=== PATIENT | male | born 1940 | race Caucasian/White ===

== ENCOUNTER 2020-07-11 17:30 | Inpatient (IN) ==
[2020-07-11] MEDS ORDERED: Ondansetron 4 MG/2 ML VIAL IVP PRN (21:53)
[2020-07-11] MEDS ORDERED: Acetaminophen 325 MG TABLET PO PRN (21:53)
[2020-07-11] MEDS ORDERED: Naloxone 0.4 MG/ML INJ IVP PRN (21:53)
[2020-07-11] MEDS ORDERED: Ringers Solution, Lactated 1,000 ML IVC SCH (22:00)
[2020-07-12 03:03] LABS: Basophils # 0.1 K/mcL (0.0-0.2); Basophils % 0.7 %; Eosinophils # 0.4 K/mcL (0.0-0.6); Eosinophils % 4.6 %; Hematocrit 35.4 % (37.5-50.1); Hemoglobin 11.3 g/dL (12.9-16.9); INR 1.2; Immature Granulocytes % 0.5 % (0-4); Lymphocytes # 1.7 K/mcL (0.6-4.6); Lymphocytes % 20.5 %; Mean Corpuscular HGB Conc 31.9 g/dL (31.6-35.5); Mean Corpuscular Hemoglobin 30.3 pg (28.0-33.3); Mean Corpuscular Volume 94.9 fL (83.0-100.0); Mean Platelet Volume 10.9 fL (9.4-12.4); Monocytes % 11.6 %; Neutrophils # 5.1 K/mcL (1.6-8.9); Platelet Count 165 K/mcL (140-400); Prothrombin Time 13.5 Seconds (9.4-12.1); Red Blood Count 3.73 M/mcL (4.19-5.50); Red Cell Distribution Width 12.2 % (11.5-14.5); Segmented Neutrophils % 62.1 %; White Blood Count 8.3 K/mcL (4.3-11.1)
[2020-07-12 03:18] LABS: BUN/Creatinine Ratio 17 (6-26); Blood Urea Nitrogen 18 mg/dL (8-23); Calcium 8.5 mg/dL (8.6-10.3); Carbon Dioxide 28 mEq/L (23-29); Chloride 106 mEq/L (98-107); Glucose 116 mg/dL (70-105); Osmolality,Calculated 295 (280-300); Potassium 3.2 mEq/L (3.5-5.1); Sodium 141 mEq/L (136-145); eGFR For African Americans > 60 (> 60); eGFR For Non-African Americans > 60 (> 60)
[2020-07-12] MEDS ORDERED: *HR* Propofol 200 MG/20 ML VIAL IVP ONE (07:23)
[2020-07-12] MEDS ORDERED: Ondansetron 4 MG/2 ML VIAL ONE (07:23)
[2020-07-12] MEDS ORDERED: *HR* FentaNYL (PF) 100 MCG/2 ML VIAL ONE (07:23)
[2020-07-12] MEDS ORDERED: *HR* Midazolam HCl 2 MG/2 ML VIAL ONE (07:23)
[2020-07-12] MEDS ORDERED: Lidocaine -MPF 2% 2 ML VIAL ONE (07:23)
[2020-07-12] MEDS ORDERED: Povidone-Iodine 45 ML, Sodium Chloride IRRigation 1,000 ML IR ONE (07:30)
[2020-07-12] MEDS ORDERED: TOTAL JOINT MIXTURE (100ML) INTRAART ONE (07:45)
[2020-07-12] MEDS: Aspirin Enteric Coated 81 MG Tablet PO SCH (07:49)
[2020-07-12] MEDS ORDERED: atenoloL 50 MG TABLET PO SCH (09:00)
[2020-07-12] MEDS ORDERED: Calcium Gluconate 1gm/50mL 1 GM/50 ML BAG IVPB SCH (09:30)
[2020-07-12] MEDS ORDERED: Ondansetron 4 MG/2 ML VIAL IVP ONE (09:33)
[2020-07-12] MEDS ORDERED: Naloxone 0.4 MG/ML INJ IVP PRN (09:33)
[2020-07-12] MEDS ORDERED: *HR* HYDROmorphone PF 0.5 MG/0.5 ML SYRINGE IVP PRN (09:33)
[2020-07-12] MEDS ORDERED: Nitroglycerin 0.4 MG TAB.SUBL SL PRN (09:33)
[2020-07-12] MEDS ORDERED: *HR* FentaNYL (PF) 100 MCG/2 ML VIAL IVP PRN (09:33)
[2020-07-12] MEDS ORDERED: 0.9 % Sodium Chloride 250 ML IVC SCH (09:45)
[2020-07-12] MEDS ORDERED: CeFAZolin Syr 2,000MG/20 ML 2,000 MG/20 ML SYRINGE IVPB ONE (10:00)
[2020-07-12] MEDS ORDERED: *HR* HYDROMORPHONE 2 MG/ML VIAL ONE (10:17)
[2020-07-12] MEDS ORDERED: *HR* PHENYLEPHRINE 1,000 MCG/10 ML SYRINGE IVP ONE (10:27)
[2020-07-12] MEDS: CeFAZolin 2 GM/120 ML BAG IVPB SCH ×2 (17:01→23:34)
[2020-07-13 02:42] LABS: Hemoglobin 10.4 g/dL (12.9-16.9); Mean Corpuscular HGB Conc 32.5 g/dL (31.6-35.5); Mean Corpuscular Hemoglobin 30.6 pg (28.0-33.3); Mean Corpuscular Volume 94.1 fL (83.0-100.0); Mean Platelet Volume 10.9 fL (9.4-12.4); Platelet Count 192 K/mcL (140-400); Red Cell Distribution Width 12.1 % (11.5-14.5); White Blood Count 11.1 K/mcL (4.3-11.1)
[2020-07-13 03:06] LABS: % Iron Saturation 11 % (20-55); BUN/Creatinine Ratio 19 (6-26); Blood Urea Nitrogen 22 mg/dL (8-23); Calcium 8.4 mg/dL (8.6-10.3); Carbon Dioxide 25 mEq/L (23-29); Chloride 105 mEq/L (98-107); Glucose 143 mg/dL (70-105); Iron 22 mcg/dL (65-175); Magnesium 1.9 mg/dL (1.6-2.6); Osmolality,Calculated 290 (280-300); Potassium 3.8 mEq/L (3.5-5.1); Sodium 137 mEq/L (136-145); Transferrin 146 mg/dL (203-362); eGFR For African Americans > 60 (> 60); eGFR For Non-African Americans > 60 (> 60)
[2020-07-13 03:21] LABS: Ferritin 175 ng/mL (20-250)
[2020-07-13 03:30] LABS: Folate > 22.3 ng/mL (3.0-16.0); Vitamin B12 455 pg/mL (250-1100)
[2020-07-13] MEDS ORDERED: NON-FORMULARY MEDICATION 1 EACH EACH (Amlodipine Besylate 10 MG) PO SCH (09:00)
[2020-07-13] MEDS: Cholecalciferol (D-3) 1,000 UNIT (25MCG) TABLET PO SCH (09:18)
[2020-07-13] MEDS: amLODIPine 5 MG TABLET PO SCH (09:18)
[2020-07-13] MEDS: Multivit/Ca/Min/Fe/FA 1 TAB TABLET PO SCH (09:18)
[2020-07-13] MEDS: Aspirin Enteric Coated 81 MG Tablet PO SCH (09:18)
[2020-07-13] MEDS: carvediloL 25 MG TABLET PO SCH ×2 (09:18→15:48)
[2020-07-14 06:52] LABS: Hematocrit 30.4 % (37.5-50.1); Mean Corpuscular HGB Conc 32.9 g/dL (31.6-35.5); Mean Corpuscular Hemoglobin 30.7 pg (28.0-33.3); Mean Corpuscular Volume 93.3 fL (83.0-100.0); Mean Platelet Volume 10.5 fL (9.4-12.4); Platelet Count 178 K/mcL (140-400); Red Blood Count 3.26 M/mcL (4.19-5.50); Red Cell Distribution Width 12.2 % (11.5-14.5); White Blood Count 9.6 K/mcL (4.3-11.1)
[2020-07-14 07:04] LABS: BUN/Creatinine Ratio 24 (6-26); Blood Urea Nitrogen 23 mg/dL (8-23); Calcium 8.3 mg/dL (8.6-10.3); Carbon Dioxide 27 mEq/L (23-29); Chloride 103 mEq/L (98-107); Glucose 114 mg/dL (70-105); Magnesium 1.8 mg/dL (1.6-2.6); Osmolality,Calculated 289 (280-300); Phosphorous 2.7 mg/dL (2.7-4.5); Potassium 3.3 mEq/L (3.5-5.1); Sodium 137 mEq/L (136-145); eGFR For African Americans > 60 (> 60); eGFR For Non-African Americans > 60 (> 60)
[2020-07-14] MEDS: Aspirin Enteric Coated 81 MG Tablet PO SCH (09:36)
[2020-07-14] MEDS: Cholecalciferol (D-3) 1,000 UNIT (25MCG) TABLET PO SCH (09:36)
[2020-07-14] MEDS: Multivit/Ca/Min/Fe/FA 1 TAB TABLET PO SCH (09:36)
[2020-07-14] MEDS: carvediloL 25 MG TABLET PO SCH ×2 (09:37→17:22)
[2020-07-14] MEDS: amLODIPine 5 MG TABLET PO SCH (09:37)
[2020-07-14 15:48] VITALS: BP 121/73
[2020-07-14 17:15] LABS: Adenovirus Not Detected (Not Detect); Bordetella Pertussis Not Detected (Not Detect); Chlamydophila pneumoniae Not Detected (Not Detect); Coronavirus 229E Not Detected (Not Detect); Coronavirus HKU1 Not Detected (Not Detect); Coronavirus NL63 Not Detected (Not Detect); Coronavirus OC43 Not Detected (Not Detect); Human Metapneumovirus Not Detected (Not Detect); Human Rhinovirus/Enterovirus Not Detected (Not Detect); Influenza A Subtype 2009 H1 Not Detected (Not Detect); Influenza B Not Detected (Not Detect); Mycoplasma pneumoniae Not Detected (Not Detect); Parainfluenza Virus 1 Not Detected (Not Detect); Parainfluenza Virus 2 Not Detected (Not Detect); Parainfluenza Virus 3 Not Detected (Not Detect); Parainfluenza Virus 4 Not Detected (Not Detect); Respiratory Syncytial Virus Not Detected (Not Detect); SARS-CoV-2 Not Detected (Not Detect)
[2020-07-14] MEDS ORDERED: *HR* OxyCODONE Immed Rel 5 MG TABLET PO PRN (17:15)
== END 2020-07-14 19:29 | DRG 482 ==
LOC: 3NENU → SUATTDRO 20:05
PROVIDERS: ADMIT Internal Medicine; ATTEND Student in an Organized Health Care Education/Training Program

== ENCOUNTER 2021-09-13 14:36 | Inpatient (IN) ==
[2021-09-13] MEDS ORDERED: Isovue-370 500 ML BOTTLE IVP ONE (17:10)
[2021-09-13] MEDS ORDERED: Mag Hydrox/Al Hydrox/Simeth 30 ML UDC PO PRN (17:13)
[2021-09-13] MEDS ORDERED: Naloxone 0.4 MG/ML INJ IVP PRN (17:13)
[2021-09-13] MEDS ORDERED: Ondansetron ODT 4 MG TAB.RAPDIS SL PRN (17:13)
[2021-09-13] MEDS ORDERED: Melatonin 3 MG TABLET PO PRN (17:13)
[2021-09-13] MEDS ORDERED: Perflutren Lipid Microsphere 1.3 ML in 0.9 % Sodium Chloride 8.7 ML IVP PRN (17:30)
[2021-09-13 22:48] LABS: Bacteria,Urine Few per hpf (None-Few); Bilirubin,Urine Negative (Negative); Blood,Urine Trace (Negative); Clarity,Urine Clear (Clear); Color,Urine Light-Yellow (Yellow); Glucose,Urine (UA) Normal (Normal); Ketones,Urine Trace mg/dL (Negative); Leukocyte Esterase,Urine Negative (Negative); Nitrite,Urine Negative (Negative); Protein,Urine Trace mg/dL (Neg-Trace); RBC,Urine 15-30 per hpf (0-3); Urobilinogen,Urine Normal (Normal); WBC,Urine 0-3 per hpf (0-3)
[2021-09-14 02:18] LABS: INR 1.1; Prothrombin Time 12.8 Seconds (9.4-12.1)
[2021-09-14 03:04] LABS: Alanine Aminotransferase 11 Units/L (7-52); Albumin 3.6 g/dL (3.5-5.7); Albumin/Globulin Ratio 1.1 (1.1-2.2); Alkaline Phosphatase 87 Units/L (34-104); Aspartate Amino Transferase 26 Units/L (13-39); BUN/Creatinine Ratio 11 (6-26); Bilirubin,Total 0.8 mg/dL (0.3-1.0); Blood Urea Nitrogen 11 mg/dL (8-23); Calcium 9.2 mg/dL (8.6-10.3); Carbon Dioxide 24 mEq/L (23-29); Chloride 107 mEq/L (98-107); Chol/HDL Ratio 5.3 (0-4.9); Cholesterol 207 mg/dL (< 200); Globulin 3.2 g/dL (2.4-3.5); Glucose 94 mg/dL (70-105); HDL Cholesterol 39 mg/dL (40-59); LDL Cholesterol,Calculated 142 mg/dL (< 100); Osmolality,Calculated 291 (280-300); Potassium 3.1 mEq/L (3.5-5.1); Sodium 141 mEq/L (136-145); Total Protein 6.8 g/dL (6.4-8.9); Triglycerides 131 mg/dL (< 150); eGFR For African Americans > 60 (> 60); eGFR For Non-African Americans > 60 (> 60)
[2021-09-14 03:39] LABS: Estimated Average Glucose 108 mg/dl; Hemoglobin A1C 5.4 %
[2021-09-14] MEDS: MOM Conc 10 ML UD.LIQ PO PRN (08:06)
[2021-09-14] MEDS ORDERED: Aspirin Enteric Coated 81 MG Tablet PO SCH (09:00)
[2021-09-14] MEDS: carvediloL 25 MG TABLET PO SCH (18:02)
[2021-09-15] MEDS: Aspirin Enteric Coated 325 MG Tablet PO SCH (08:40)
[2021-09-15] MEDS: carvediloL 25 MG TABLET PO SCH (17:24)
[2021-09-16 02:28] LABS: BUN/Creatinine Ratio 11 (6-26); Blood Urea Nitrogen 12 mg/dL (8-23); Calcium 9.1 mg/dL (8.6-10.3); Carbon Dioxide 26 mEq/L (23-29); Chloride 104 mEq/L (98-107); Glucose 104 mg/dL (70-105); Osmolality,Calculated 286 (280-300); Potassium 3.6 mEq/L (3.5-5.1); Sodium 138 mEq/L (136-145); eGFR For African Americans > 60 (> 60); eGFR For Non-African Americans > 60 (> 60)
[2021-09-16] MEDS: Aspirin Enteric Coated 325 MG Tablet PO SCH (08:32)
[2021-09-16] MEDS: carvediloL 25 MG TABLET PO SCH (17:11)
[2021-09-16] MEDS: MOM Conc 10 ML UD.LIQ PO PRN (20:25)
[2021-09-17] MEDS: Aspirin Enteric Coated 325 MG Tablet PO SCH (08:31)
[2021-09-17 09:48] LABS: Influenza A PCR Negative (Negative); Influenza B PCR Negative (Negative); Resp. Syncytial Virus PCR Negative (Negative)
[2021-09-17 09:49] LABS: SARS-CoV-2 by PCR (In House) Negative (Negative)
[2021-09-17 11:21] VITALS: BP 166/79; PULSE 77; TEMP 97.7; O2SAT 94
== END 2021-09-17 12:39 | disposition other institution (70) | DRG 309 ==
LOC: 3BNU → SUATTDRO 16:37
PROVIDERS: ADMIT Internal Medicine; ATTEND Registered Nurse

== ENCOUNTER 2021-11-27 18:02 | Inpatient (IN) ==
[2021-11-27] MEDS ORDERED: *HR* OxyCODONE Immed Rel 5 MG TABLET PO PRN (21:35)
[2021-11-27] MEDS ORDERED: Melatonin 3 MG TABLET PO PRN (21:35)
[2021-11-27] MEDS ORDERED: Ondansetron 4 MG/2 ML VIAL IVP PRN (21:35)
[2021-11-27] MEDS ORDERED: Acetaminophen 325 MG TABLET PO PRN (21:35)
[2021-11-27] MEDS ORDERED: *HR* HYDROcodone/Acet 5/325 mg TABLET PO PRN (21:35)
[2021-11-27] MEDS ORDERED: Naloxone 0.4 MG/ML INJ IVP PRN (21:35)
[2021-11-27] MEDS: 0.9 % Sodium Chloride 1,000 ML IVC SCH (22:12)
[2021-11-28] MEDS ORDERED: *HR* Dextrose 50 % in Water (Syg) 50 ML SYRINGE IVP PRN ×2 (02:15→13:57)
[2021-11-28] MEDS ORDERED: Dextrose Gel 15 GM/37.5 ML TUBE PO PRN ×4 (02:15→13:57)
[2021-11-28] MEDS ORDERED: D5% in Water 1,000 ML IVC PRN ×2 (02:15→13:57)
[2021-11-28 06:04] LABS: Basophils # 0.1 K/mcL (0.0-0.2); Basophils % 0.9 %; Eosinophils # 0.3 K/mcL (0.0-0.6); Eosinophils % 4.2 %; Hematocrit 37.6 % (37.5-50.1); Immature Granulocytes % 0.4 % (0-4); Lymphocytes # 2.5 K/mcL (0.6-4.6); Lymphocytes % 35.7 %; Mean Corpuscular HGB Conc 31.9 g/dL (31.6-35.5); Mean Corpuscular Hemoglobin 30.7 pg (28.0-33.3); Mean Corpuscular Volume 96.2 fL (83.0-100.0); Mean Platelet Volume 12.2 fL (9.4-12.4); Monocytes # 0.6 K/mcL (0.0-1.3); Neutrophils # 3.4 K/mcL (1.6-8.9); Platelet Count 109 K/mcL (140-400); Red Blood Count 3.91 M/mcL (4.19-5.50); Red Cell Distribution Width 13.8 % (11.5-14.5); Segmented Neutrophils % 49.8 %; White Blood Count 6.9 K/mcL (4.3-11.1)
[2021-11-28 06:08] LABS: INR 1.5; Prothrombin Time 16.8 Seconds (9.4-12.1)
[2021-11-28 06:11] LABS: Activated Partial Thrombo Time 35.9 Seconds (26.0-36.0)
[2021-11-28 06:50] LABS: Alanine Aminotransferase 12 Units/L (7-52); Albumin 3.2 g/dL (3.5-5.7); Albumin/Globulin Ratio 1.2 (1.1-2.2); Alkaline Phosphatase 76 Units/L (34-104); Aspartate Amino Transferase 16 Units/L (13-39); BUN/Creatinine Ratio 14 (6-26); Bilirubin,Total 0.5 mg/dL (0.3-1.0); Blood Urea Nitrogen 17 mg/dL (8-23); Calcium 8.6 mg/dL (8.6-10.3); Carbon Dioxide 23 mEq/L (23-29); Chloride 109 mEq/L (98-107); Globulin 2.6 g/dL (2.4-3.5); Glucose 97 mg/dL (70-105); Magnesium 1.8 mg/dL (1.6-2.6); Osmolality,Calculated 287 (280-300); Phosphorous 3.7 mg/dL (2.7-4.5); Sodium 138 mEq/L (136-145); Total Protein 5.8 g/dL (6.4-8.9); eGFR For African Americans > 60 (> 60); eGFR For Non-African Americans 59 (> 60)
[2021-11-28] MEDS: 0.9 % Sodium Chloride 1,000 ML IVC SCH (10:02)
[2021-11-28] MEDS ORDERED: Lidocaine Jelly 11 ml Syringe ONE (10:19)
[2021-11-28] MEDS ORDERED: Iopamidol - 300 50 ML VIAL ONE (10:28)
[2021-11-28] MEDS ORDERED: *HR* Propofol 200 MG/20 ML VIAL IVP ONE (10:29)
[2021-11-28] MEDS ORDERED: Lidocaine -MPF 2% 2 ML VIAL ONE (10:29)
[2021-11-28] MEDS ORDERED: *HR* FentaNYL (PF) 100 MCG/2 ML VIAL ONE (10:29)
[2021-11-28] MEDS ORDERED: Ondansetron 4 MG/2 ML VIAL ONE (10:29)
[2021-11-28] MEDS ORDERED: Ringers Solution, Lactated 1,000 ML ONE (12:56)
[2021-11-28] MEDS ORDERED: 0.9 % Sodium Chloride 1,000 ML IVC SCH (13:57)
[2021-11-28] MEDS ORDERED: Saline Nasal Spray 44 ML BOTTLE NS PRN (13:57)
[2021-11-28] MEDS ORDERED: Melatonin 3 MG TABLET PO PRN (13:57)
[2021-11-28] MEDS ORDERED: Ondansetron 4 MG/2 ML VIAL IVP PRN (13:57)
[2021-11-28] MEDS ORDERED: MOM Conc 10 ML UD.LIQ PO PRN (13:57)
[2021-11-28] MEDS ORDERED: Naloxone 0.4 MG/ML INJ IVP PRN (13:57)
[2021-11-28] MEDS: *HR* HYDROcodone/Acet 5/325 mg TABLET PO PRN (14:55)
[2021-11-28] MEDS ORDERED: cefTRIAXone 1,000 MG in 0.9 % Sodium Chloride 10 ML IVPB SCH (17:00)
[2021-11-28] MEDS: cefTRIAXone 1,000 MG in 0.9 % Sodium Chloride 10 ML IVPB SCH (21:09)
[2021-11-28] MEDS: *HR* OxyCODONE Immed Rel 5 MG TABLET PO PRN (21:15)
[2021-11-28] MEDS: Apixaban 5 MG TABLET PO SCH (21:16)
[2021-11-29] MEDS: Loratadine/Pseudophed (12 HR) 1 EACH TABLET PO SCH ×2 (01:51→14:27)
[2021-11-29] MEDS: Multivit/Ca/Min/Fe/FA 1 TAB TABLET PO SCH (09:00)
[2021-11-29] MEDS: Apixaban 5 MG TABLET PO SCH (09:01)
[2021-11-29] MEDS: Aspirin Enteric Coated 81 MG Tablet PO SCH (09:01)
[2021-11-29] MEDS: carvediloL 25 MG TABLET PO SCH ×2 (09:01→22:34)
[2021-11-29 09:02] LABS: Basophils % 0.1 %; Eosinophils % 0.2 %; Hematocrit 39.3 % (37.5-50.1); Hemoglobin 12.6 g/dL (12.9-16.9); Immature Granulocytes % 0.5 % (0-4); Lymphocytes % 16.9 %; Mean Corpuscular HGB Conc 32.1 g/dL (31.6-35.5); Mean Corpuscular Hemoglobin 30.7 pg (28.0-33.3); Mean Corpuscular Volume 95.6 fL (83.0-100.0); Mean Platelet Volume 12.4 fL (9.4-12.4); Monocytes # 0.9 K/mcL (0.0-1.3); Monocytes % 7.3 %; Platelet Count 121 K/mcL (140-400); Red Blood Count 4.11 M/mcL (4.19-5.50); Red Cell Distribution Width 13.7 % (11.5-14.5)
[2021-11-29 09:03] LABS: Neutrophils # 8.9 K/mcL (1.6-8.9); White Blood Count 11.8 K/mcL (4.3-11.1)
[2021-11-29 09:21] LABS: BUN/Creatinine Ratio 16 (6-26); Blood Urea Nitrogen 17 mg/dL (8-23); Calcium 9.1 mg/dL (8.6-10.3); Carbon Dioxide 25 mEq/L (23-29); Chloride 105 mEq/L (98-107); Glucose 117 mg/dL (70-105); Magnesium 1.7 mg/dL (1.6-2.6); Osmolality,Calculated 283 (280-300); Phosphorous 3.5 mg/dL (2.7-4.5); Potassium 4.3 mEq/L (3.5-5.1); Sodium 135 mEq/L (136-145); eGFR For African Americans > 60 (> 60); eGFR For Non-African Americans > 60 (> 60)
[2021-11-29] MEDS ORDERED: Melatonin 3 MG TABLET PO PRN (11:38)
[2021-11-29] MEDS: polyethylene glycoL 3350 17 GM POWD.PACK PO SCH (14:39)
[2021-11-29] MEDS ORDERED: Loratadine 10 MG TABLET PO SCH (15:30)
[2021-11-29] MEDS: cefTRIAXone 1,000 MG in 0.9 % Sodium Chloride 10 ML IVPB SCH (21:33)
[2021-11-29] MEDS: Loratadine 10 MG TABLET PO SCH (21:33)
[2021-11-29] MEDS: *HR* HYDROcodone/Acet 5/325 mg TABLET PO PRN (21:33)
[2021-11-30 03:54] LABS: Basophils % 0.4 %; Eosinophils # 0.2 K/mcL (0.0-0.6); Hematocrit 34.8 % (37.5-50.1); Hemoglobin 11.2 g/dL (12.9-16.9); Immature Granulocytes % 0.3 % (0-4); Lymphocytes # 2.8 K/mcL (0.6-4.6); Lymphocytes % 27.4 %; Mean Corpuscular HGB Conc 32.2 g/dL (31.6-35.5); Mean Corpuscular Volume 96.4 fL (83.0-100.0); Mean Platelet Volume 12.6 fL (9.4-12.4); Monocytes % 9.5 %; Neutrophils # 6.1 K/mcL (1.6-8.9); Platelet Count 105 K/mcL (140-400); Red Blood Count 3.61 M/mcL (4.19-5.50); Red Cell Distribution Width 13.8 % (11.5-14.5); Segmented Neutrophils % 60.4 %; White Blood Count 10.1 K/mcL (4.3-11.1)
[2021-11-30 04:09] LABS: BUN/Creatinine Ratio 15 (6-26); Blood Urea Nitrogen 17 mg/dL (8-23); Calcium 8.7 mg/dL (8.6-10.3); Carbon Dioxide 25 mEq/L (23-29); Chloride 106 mEq/L (98-107); Glucose 104 mg/dL (70-105); Magnesium 1.6 mg/dL (1.6-2.6); Osmolality,Calculated 282 (280-300); Phosphorous 3.4 mg/dL (2.7-4.5); Potassium 4.2 mEq/L (3.5-5.1); Sodium 135 mEq/L (136-145); eGFR For African Americans > 60 (> 60); eGFR For Non-African Americans > 60 (> 60)
[2021-11-30] MEDS: Loratadine 10 MG TABLET PO SCH (08:20)
[2021-11-30] MEDS: Multivit/Ca/Min/Fe/FA 1 TAB TABLET PO SCH (08:20)
[2021-11-30] MEDS: carvediloL 25 MG TABLET PO SCH ×2 (08:22→18:44)
[2021-11-30] MEDS: Aspirin Enteric Coated 81 MG Tablet PO SCH (08:22)
[2021-11-30] MEDS: *HR* OxyCODONE Immed Rel 5 MG TABLET PO PRN (08:23)
[2021-11-30] MEDS: polyethylene glycoL 3350 17 GM POWD.PACK PO SCH (08:28)
[2021-11-30] MEDS: Acetaminophen 325 MG TABLET PO PRN (18:43)
[2021-11-30] MEDS: cefTRIAXone 1,000 MG in 0.9 % Sodium Chloride 10 ML IVPB SCH (18:44)
[2021-11-30] MEDS: *HR* HYDROcodone/Acet 5/325 mg TABLET PO PRN (21:00)
[2021-12-01 06:58] LABS: Basophils % 0.9 %; Mean Platelet Volume 12.7 fL (9.4-12.4)
[2021-12-01 07:00] LABS: Basophils # 0.1 K/mcL (0.0-0.2); Eosinophils # 0.4 K/mcL (0.0-0.6); Eosinophils % 4.7 %; Hematocrit 34.9 % (37.5-50.1); Hemoglobin 11.1 g/dL (12.9-16.9); Immature Granulocytes % 0.5 % (0-4); Immature Platelets 11.2 % (1.1-6.1); Lymphocytes # 2.5 K/mcL (0.6-4.6); Lymphocytes % 32.5 %; Mean Corpuscular HGB Conc 31.8 g/dL (31.6-35.5); Mean Corpuscular Hemoglobin 30.7 pg (28.0-33.3); Mean Corpuscular Volume 96.7 fL (83.0-100.0); Monocytes # 0.7 K/mcL (0.0-1.3); Monocytes % 9.6 %; Red Blood Count 3.61 M/mcL (4.19-5.50); Red Cell Distribution Width 13.8 % (11.5-14.5); Segmented Neutrophils % 51.8 %; White Blood Count 7.6 K/mcL (4.3-11.1)
[2021-12-01 07:03] LABS: Neutrophils # 3.9 K/mcL (1.6-8.9); Platelet Count 96 K/mcL (140-400)
[2021-12-01] MEDS: Multivit/Ca/Min/Fe/FA 1 TAB TABLET PO SCH (08:57)
[2021-12-01] MEDS: polyethylene glycoL 3350 17 GM POWD.PACK PO SCH (08:57)
[2021-12-01] MEDS: carvediloL 25 MG TABLET PO SCH ×2 (08:57→17:31)
[2021-12-01] MEDS: Aspirin Enteric Coated 81 MG Tablet PO SCH (08:57)
[2021-12-01] MEDS: Loratadine 10 MG TABLET PO SCH (08:58)
[2021-12-01 14:27] LABS: Adenovirus Not Detected (Not Detect); Bordetella Pertussis Not Detected (Not Detect); Chlamydophila pneumoniae Not Detected (Not Detect); Coronavirus 229E Not Detected (Not Detect); Coronavirus HKU1 Not Detected (Not Detect); Coronavirus NL63 Not Detected (Not Detect); Coronavirus OC43 Not Detected (Not Detect); Human Metapneumovirus Not Detected (Not Detect); Human Rhinovirus/Enterovirus Not Detected (Not Detect); Influenza A Subtype 2009 H1 Not Detected (Not Detect); Influenza B Not Detected (Not Detect); Mycoplasma pneumoniae Not Detected (Not Detect); Parainfluenza Virus 1 Not Detected (Not Detect); Parainfluenza Virus 2 Not Detected (Not Detect); Parainfluenza Virus 3 Not Detected (Not Detect); Parainfluenza Virus 4 Not Detected (Not Detect); Respiratory Syncytial Virus Not Detected (Not Detect); SARS-CoV-2 Not Detected (Not Detect)
[2021-12-01 15:38] VITALS: BP 99/59; PULSE 64; TEMP 97.4; O2SAT 95
[2021-12-01] MEDS: cefTRIAXone 1,000 MG in 0.9 % Sodium Chloride 10 ML IVPB SCH (17:32)
[2021-12-01] MEDS: Acetaminophen 325 MG TABLET PO PRN (17:32)
== END 2021-12-01 19:19 | DRG 660 ==
LOC: 3ANU → SUATTDRO 20:16
PROVIDERS: ADMIT Internal Medicine; ATTEND Internal Medicine